=== PATIENT | female | born 1935 | race Two or more races ===

== ENCOUNTER → 2019-03-04 | Emergency (ER) | payer OTHER ==
[~2019-03-04] VITALS: Ht 154.9 cm; Wt 59.9 kg
[~2019-03-04] MED LIST: AUGMENTIN1 TAB.CHE2; LEVAQUIN500 MG PO; PREDNISONE20 MG PO
== END ==
LOC: ER 14:39
DX: M79.604 Pain in right leg (principal); M13.861 Other specified arthritis, right knee

== ENCOUNTER 2023-01-11 11:04 | Emergency (ER) | payer OTHER ==
[~2023-01-11] VITALS: Ht 152.4 cm; Wt 63.0 kg
== END 2023-01-11 15:51 | disposition home or self-care (01) ==
LOC: ER 11:04
DX: N39.0 Urinary tract infection, site not specified (principal)

== ENCOUNTER 2023-01-18 10:14 | Emergency (ER) | payer OTHER ==
[~2023-01-18] VITALS: Ht 152.4 cm; Wt 63.0 kg
== END 2023-01-18 17:23 | disposition home or self-care (01) ==
LOC: ER 10:14
DX: N39.0 Urinary tract infection, site not specified (principal); B96.29 Other Escherichia coli [E. coli] as the cause of diseases classified elsewhere; Z16.11 Resistance to penicillins

== ENCOUNTER 2023-06-14 18:12 | Emergency (ER) | payer OTHER ==
[~2023-06-14] VITALS: Ht 152.4 cm; Wt 59.9 kg
[2023-06-14] MEDS ORDERED: METOPROLOL SUCC25 MG PO (18:30)
[2023-06-14 19:14] LABS: HEMATOCRIT 38.4 % (36.0-45.00); HEMOGLOBIN 12.2 g/dL (12.0-15.00); MEAN CELL VOLUME 85.5 fL (80.00-100.00); MEAN CORPUSCULAR HEMOGLOBIN 27.1 pg (27.00-32.0); MEAN CORPUSCULAR HGB CONC 31.7 g/dl (32.0-36.0); PLATELET COUNT 142 K/uL (150-450); RED BLOOD COUNT 4.49 M/uL (4.00-6.00); RED CELL DISTRIBUTION WIDTH 13.7 % (11.5-14.5)
[2023-06-14 19:36] LABS: CALCIUM 9.1 mg/dL (8.5-10.1); CREATININE SERUM 0.67 mg/dL (0.55-1.02); GFR 83.26; POTASSIUM 4.27 mEq/L (3.5-5.1)
== END 2023-06-14 21:46 | disposition home or self-care (01) ==
LOC: ER 18:12
PROVIDERS: Emergency Medicine
DX: K29.70 Gastritis, unspecified, without bleeding (principal); I10 Essential (primary) hypertension
CPT/HCPCS: 36415; 96365; 96366; 99284; J2405; J3490

== ENCOUNTER 2024-04-03 10:01 | Emergency (ER) | payer OTHER ==
[~2024-04-03] VITALS: Ht 160 cm; Wt 59.9 kg
[~2024-04-03 10:01] MED LIST changes: +METOPROLOL SUCC25 MG PO
[2024-04-03] MEDS ORDERED: ONDANSETRON HCL 2 MG/ML VIAL ONE (10:27)
[2024-04-03] MEDS ORDERED: FAMOTIDINE/PF 20 MG/2 ML VIAL ONE ×2 (10:27→13:48)
[2024-04-03] MEDS ORDERED: ONDANSETRON HCL 2 MG/ML VIAL IV ONE (10:30)
[2024-04-03] MEDS ORDERED: FAMOtidine 10 MG/ML (4ML VIAL) IV ONE ×2 (10:30→13:45)
[2024-04-03] MEDS ORDERED: 0.9 % SODIUM CHLORIDE 1,000 ML IV ONE ×2 (10:30→13:45)
[2024-04-03 11:35] LABS: HEMATOCRIT 37.8 % (36.0-45.00); HEMOGLOBIN 12.3 g/dL (12.0-15.00); MEAN CELL VOLUME 82.3 fL (80.00-100.00); MEAN CORPUSCULAR HEMOGLOBIN 26.8 pg (27.00-32.0); MEAN CORPUSCULAR HGB CONC 32.6 g/dl (32.0-36.0); RED BLOOD COUNT 4.59 M/uL (4.00-6.00); RED CELL DISTRIBUTION WIDTH 15.4 % (11.5-14.5)
[2024-04-03 11:56] LABS: URINE APPEARANCE Clear; URINE BILIRRUBIN Negative (NEGATIVE); URINE BLOOD Negative; URINE COLOR Yellow; URINE GLUCOSE Negative (NEGATIVE); URINE KETONE Trace (NEGATIVE); URINE LEUKOCYTE Negative; URINE NITRATE Positive; URINE PROTEIN Negative (NEGATIVE); URINE UROBILINOGEN 0.2 E.U./dl
[2024-04-03 12:00] LABS: PLATELET COUNT 143 K/uL (150-450)
[2024-04-03 12:04] LABS: URINE RBC 11.9 uL (0.0-20.8); URINE WBC 7.4 uL (0.0-23.2)
[2024-04-03 12:08] LABS: URINE BACTERIA > 9821.5 uL (0.0-1933)
[2024-04-03 12:17] LABS: ALBUMIN 3.8 gm/dL (3.4-5.0); BILIRUBIN TOTAL 0.48 mg/dL (0.3-1.2); CALCIUM 9.6 mg/dL (8.5-10.1); CREATININE SERUM 0.65 mg/dL (0.55-1.02); GFR 86.02; GLOBULINA 4.4 G/DL (2.4-3.5); POTASSIUM 3.6 mEq/L (3.5-5.1); TOTAL PROTEIN 8.2 gm/dL (6.4-8.2)
[2024-04-03] MEDS ORDERED: BACTRIM DS TAB1 EACH PO (12:28)
[2024-04-03] MEDS ORDERED: PEPCID AC20 MG PO (12:28)
[2024-04-03] MEDS ORDERED: MECLIZINE HCL 12.5 MG TABLET PO ONE ×2 (13:05→13:15)
[2024-04-03] MEDS ORDERED: PROMETHAZINE HCL 25 MG/ML AMPUL IM ONE (13:45)
[2024-04-03] MEDS ORDERED: CEFTRIAXONE SODIUM 2,000 MG VIAL IV ONE (13:45)
[2024-04-03] MEDS ORDERED: CEFTRIAXONE SODIUM 2,000 MG VIAL ONE (13:48)
[2024-04-03] MEDS ORDERED: PROMETHAZINE HCL 25 MG/ML AMPUL ONE (13:48)
== END 2024-04-03 12:33 | disposition home or self-care (01) ==
LOC: ER 10:01
PROVIDERS: General Practice
DX: N39.0 Urinary tract infection, site not specified (principal); R11.10 Vomiting, unspecified; R53.1 Weakness; I10 Essential (primary) hypertension; K29.70 Gastritis, unspecified, without bleeding; Z20.822 Contact with and (suspected) exposure to COVID-19
CPT/HCPCS: 36415; 70450; 71045; 93005; 96365; 96366; 96372; 99284; J0696; J2250; J2405; J3490; J7030